=== PATIENT | female | born 1945 ===

== ENCOUNTER 2020-04-17 10:00 | Inpatient (IN) | payer OTHER ==
[~2020-04-17] VITALS: Ht 157.5 cm; Wt 61.2 kg
[2020-04-17] MEDS ORDERED: COZAAR100 MG PO (12:47)
[2020-04-17] MEDS ORDERED: AMLODIPI PO (12:47)
[2020-04-17] MEDS ORDERED: ATORVASTATIN CA20 MG PO (12:48)
[2020-04-17] MEDS ORDERED: [UNRECOGNIZED DRUG - OTHER] PO (12:48)
[2020-04-17] MEDS ORDERED: RALOXIFENE HCL60 MG PO (12:49)
[2020-04-26] MEDS ORDERED: PERCOCET 5-3251 EACH PO (12:19)
[2020-04-26] MEDS ORDERED: ACID REDUCER20 M1 PO (12:19)
[2020-04-26] MEDS ORDERED: INTESTINEX680 M1 PO (12:19)
== END 2020-04-26 15:29 | disposition home or self-care (01) | DRG 331 ==
LOC: O/R 04-24 05:30 → SURH 04-24 08:15
PROVIDERS: ADMIT Surgery; ATTEND Surgery
PROC: 07BB4ZZ Excision of Mesenteric Lymphatic, Percutaneous Endoscopic Approach (ICD-10-PCS; 2020-04-24)
PROC: 0DTF4ZZ Resection of Right Large Intestine, Percutaneous Endoscopic Approach (ICD-10-PCS; principal; 2020-04-24 08:15)
DX: D12.0 Benign neoplasm of cecum (principal); D12.2 Benign neoplasm of ascending colon; D12.1 Benign neoplasm of appendix; D36.0 Benign neoplasm of lymph nodes; R59.0 Localized enlarged lymph nodes